=== PATIENT | female | born 1960 | race Caucasian/White ===

== ENCOUNTER → 2017-02-02 | Outpatient (CLI) | payer OTHER | LOC: FIMAGING 12:54 | PROVIDERS: ATTEND Surgery | DX: R10.11 Right upper quadrant pain (principal); R11.0 Nausea | CPT/HCPCS: 78226; A9537 ==

== ENCOUNTER 2017-02-03 08:56 | Day surgery (SDC) | payer OTHER ==
[~2017-02-03 08:56] MED LIST: cefOXitin SODIUM 2 GM in D5W 100 ML IV ONE
[2017-02-03] MEDS ORDERED: LIDOCAINE 1% 2 ML INJ ID PRN (09:43)
[2017-02-03] MEDS ORDERED: LR 1,000 ML IV ONE (09:43)
[2017-02-03] MEDS ORDERED: BUPIVACAINE 0.5% 30 ML SDV ONE (09:56)
[2017-02-03] MEDS ORDERED: MIDAZOLAM 2 MG/2 ML VIAL IVP ONE (10:20)
--- NOTE | 2017-02-03 10:21 | PDHPUP ---
History & Physical Update H&P update statement: This history and physical update is based on an assessment of the patient which was completed after admission or registration (within 24 hours), but prior to the surgery/procedure. H&P update: H&P reviewed & patient examined, no change in patient's condition since H&P completed
[2017-02-03] MEDS ORDERED: MIDAZOLAM 2 MG/2 ML VIAL ONE (10:24)
--- NOTE | 2017-02-03 10:26 | PDANEPAE ---
ANE History of Present Illness 56 year old with cholangitis ANE Past Medical History - Cardiovascular History Hx Hypertension: No - Pulmonary History Hx Asthma/Reactive Airway Disease: No Hx Sleep Apnea: No - Endocrine History Hx Diabetes: No ANE Review of Systems Review of systems is: negative ANE Patient History - Allergies Allergies/Adverse Reactions: Penicillins Allergy (Mild, Verified 02/03/17 08:57) Rash - Home Medications Home Medications: Acyclovir [Zovirax 400 mg (*)] 400 mg PO BID 02/03/17 [Last Taken Unknown] - NPO status NPO Since - Liquids (Date): 02/02/17 NPO Since - Liquids (Time): 21:00 NPO Since - Solids (Date): 02/02/17 NPO Since - Solids (Time): 21:00 - Anes Hx Anes Hx: no prior problems Hx Anesthesia Complications (with details): Rowena Teeth - Smoking Hx Smoking Status: Never smoked ANE Labs/Vital Signs - Vital Signs Blood Pressure: 110/68 Heart Rate: 79 Respiratory Rate: 16 O2 Sat (%): 94 Height: 170.18 cm Weight: 70.307 kg ANE Physical Exam - Airway Neck exam: FROM Mallampati Score: Class 1 Mouth exam: normal dental/mouth exam - Pulmonary Pulmonary: no respiratory distress, clear to auscultation - Cardiovascular Cardiovascular: regular rate and rhythym - ASA Status ASA Status: II ANE Anesthesia Plan Anesthesia Plan: general endotracheal anesthesia
[2017-02-03] MEDS ORDERED: PROPOFOL 200 MG/20 ML VIAL ONE (10:42)
[2017-02-03] MEDS ORDERED: fentaNYL 100 MCG/2 ML INJ ONE ×4 (10:42→12:31)
[2017-02-03] MEDS ORDERED: LIDOCAINE 2% 5 ML SDV ONE (10:42)
[2017-02-03] MEDS ORDERED: fentaNYL 100 MCG/2 ML INJ IVP PRN ×2 (11:57)
[2017-02-03] MEDS ORDERED: PROMETHAZINE HCL 25 MG/ML INJ IVP PRN (11:57)
[2017-02-03] MEDS ORDERED: NALOXONE HCL 0.4 MG/ML INJ IVP PRN (11:57)
[2017-02-03] MEDS ORDERED: HYDROmorphONE/DILAUDID 1 MG/ML SYR IVP PRN ×2 (11:57)
--- NOTE | 2017-02-03 12:16 | POSTOPPROG ---
Post Op Note Date of Operation: 02/03/17 Surgeon: Anmol Brown Poultry Grader: Rao Chacko Anesthesiologist: Dr. Silva Anesthesia: GET(General Endotracheal) Pre-op Diagnosis: Cholecystitis Post-op Diagnosis: Same Procedure: Lap geri Inf/Abcess present in the surg proc area at time of surgery?: Yes Depth: Organ Space EBL: Minimal
[2017-02-03] MEDS ORDERED: HYDROmorphONE/DILAUDID 1 MG/ML SYR ONE (12:31)
[2017-02-03 13:02] VITALS: PULSE 75; TEMP 98.6
[2017-02-03 13:06] VITALS: RESP 15
[2017-02-03] MEDS ORDERED: OXYCODONE/APAP 5/325 TAB PO PRN (13:33)
[2017-02-03] MEDS ORDERED: HYDROCODONE/APAP 5/325 TAB ONE (13:55)
[2017-02-03] MEDS: HYDROCODONE/APAP 5/325 TAB PO PRN ×2 (13:57→14:54)
[2017-02-03] MEDS ORDERED: ONDANSETRON 4 MG/2 ML VIAL ONE (14:04)
[2017-02-03] MEDS ORDERED: ONDANSETRON 4 MG/2 ML VIAL IVP ONE (14:15)
[2017-02-03 16:04] VITALS: BP 96/66; O2SAT 92
--- NOTE | 2017-02-03 20:10 | GOP ---
[f rep st] OPERATIVE REPORT DATE OF OPERATION: 02/03/2017 SURGEON: Sam Brown MD DIETICIAN: Ankit Chacko, PRINCIPAL JAVA SOFTWARE ENGINEER, [facility], whose presence was requested by me and medically necessary for the safe and timely completion of this case. ANESTHESIA: General endotracheal anesthesia per Gregor hernandez MD. PREOPERATIVE DIAGNOSIS: Cholecystitis. POSTOPERATIVE DIAGNOSIS: Cholecystitis. PROCEDURE PERFORMED: FINDINGS: Patient had moderate inflammation of the gallbladder with multiple stones. No other lesio ns were identified. ESTIMATED BLOOD LOSS: 20 cc. INDICATIONS: This is a 56-year-old female with a history of abdominal pain. Ultrasound demonstrated gallstones and HIDA scan demonstrated cholecystitis. Risks and benefits of the procedure were discu ssed with the patient and her family, their questions were answered, and they wished to proceed. DESCRIPTION OF PROCEDURE: The patient was in the supine position. After the induction of adequate g eneral endotracheal anesthesia, the patient was prepped and draped in the standard surgical fashion. The supraumbilical area was infiltrated with 0.5% Marcaine for local anesthesia. A 5-mm incision wa s made and the abdominal wall was elevated. A Veress needle was inserted and after noting proper pre ssures, the abdomen was insufflated with carbon dioxide. A 5-mm trocar was passed and the camera fol lowed. There was no apparent damage with trocar placement. Three more ports were placed; two 5-mm po rts in the right subcostal area, and one 11-mm port in the subxiphoid area. These were all placed du ring direct vision after injecting 0.5% Marcaine for local anesthesia. The gallbladder was then grasped and elevated. Adhesions were taken down using blunt dissection and cautery. The cystic structures were carefully dissected in a similar fashion. The cystic duct and cy stic artery were clearly identified. In addition, the subhepatic space was dissected. Once this crit ical view was obtained, the cystic duct and cystic artery were clipped and transected with scissors. The gallbladder was then elevated off the liver bed using cautery and blunt dissection. It was with drawn through the subxiphoid port. The abdomen was then inspected and good hemostasis was noted. The fascia at the 11-mm port site was closed using 0 Vicryl in an interrupted fashion. All trocars were removed under direct vision, and t he pneumoperitoneum was allowed to escape. The wounds were thoroughly irrigated and the skin was lyndsay sed with 5-0 Monocryl in a subcuticular stitch. Needle and sponge counts were correct. The wounds we re sterilely dressed. The patient was extubated and taken to the post-anesthesia care unit in stable condition. The abdomen was thoroughly irrigated and aspirated. Good hemostasis was noted. The gall bladder was withdrawn using the EndoCatch bag. PROCEDURE: Laparoscopic cholecystectomy. COMPLICATIONS: None. DRAINS: None. /[id number]/MODL
== END 2017-02-03 16:08 | disposition home or self-care (01) ==
LOC: FSGY 09:25 → EDSTATUS 12:00 → FSGY 16:08
PROVIDERS: ATTEND Surgery
PROC: 0FT44ZZ Resection of Gallbladder, Percutaneous Endoscopic Approach (ICD-10-PCS; principal; 2017-02-03 12:00)
DX: K80.46 Calculus of bile duct with acute and chronic cholecystitis without obstruction (principal)
CPT/HCPCS: J0694; J1170; J2250; J2405; J2704; J3010

== ENCOUNTER → 2017-06-12 | Outpatient (CLI) | payer OTHER | LOC: FIMAGING 15:33 | PROVIDERS: ATTEND Internal Medicine | DX: Z12.31 Encounter for screening mammogram for malignant neoplasm of breast (principal) | CPT/HCPCS: G0202 ==

== ENCOUNTER → 2017-12-19 | Outpatient (CLI) | payer OTHER ==
[~2017-12-19] MED LIST changes: +IOPAMIDOL (ISOVUE-300) 100 ML BTL ONE; -cefOXitin SODIUM 2 GM in D5W 100 ML IV ONE
== END ==
LOC: FIMAGING 10:38
PROVIDERS: ATTEND Internal Medicine
DX: R10.30 Lower abdominal pain, unspecified (principal); M54.5 Low back pain; R19.7 Diarrhea, unspecified; K57.30 Diverticulosis of large intestine without perforation or abscess without bleeding; M51.37 Other intervertebral disc degeneration, lumbosacral region; S22.080D Wedge compression fracture of T11-T12 vertebra, subsequent encounter for fracture with routine healing
CPT/HCPCS: Q9967

== ENCOUNTER → 2018-06-26 | Outpatient (CLI) | payer OTHER | LOC: FIMAGING 09:06 | PROVIDERS: ATTEND Internal Medicine | DX: Z12.31 Encounter for screening mammogram for malignant neoplasm of breast (principal) ==